=== PATIENT | female | born 1995 | race Two or more races ===

== ENCOUNTER 2017-06-16 00:28 | Emergency (ER) | payer SELFPAY ==
[~2017-06-16] VITALS: Ht 160 cm; Wt 69.5 kg
[2017-06-16 00:29] VITALS: BP 112/73
[2017-06-16] MEDS ORDERED: ALBUTEROL/IPRATROPIUM 2.5MG/0.5MG, 3 ML ONE (00:59)
[2017-06-16] MEDS ORDERED: ALBUTEROL/IPRATROPIUM 2.5MG/0.5MG, 3 ML NPPB PRN (01:00)
[2017-06-16] MEDS: ALBUTEROL/IPRATROPIUM 2.5MG/0.5MG, 3 ML NPPB SCH (01:00)
== END 2017-06-16 02:01 | disposition home or self-care (01) ==
LOC: ED 01:55
DX: J45.31 Mild persistent asthma with (acute) exacerbation (principal); R07.89 Other chest pain
CPT/HCPCS: 71046; 93005; 94640; 99284; J7512; J7620

== ENCOUNTER 2017-09-18 01:22 | Emergency (ER) | payer SELFPAY ==
[~2017-09-18] VITALS: Ht 160 cm; Wt 65.4 kg
[2017-09-18 01:29] VITALS: BP 108/73
[2017-09-18] MEDS ORDERED: ALBUTEROL/IPRATROPIUM 2.5MG/0.5MG, 3 ML ONE (01:52)
[2017-09-18] MEDS ORDERED: ALBUTEROL/IPRATROPIUM 2.5MG/0.5MG, 3 ML NEB ONE (02:00)
[2017-09-18 02:17] LABS: BASOPHILS # (AUTO) 0.02 x10^3/uL (0-0.1); BASOPHILS % (AUTO) 0 % (0-1); EOSINOPHILS # (AUTO) 0.02 x10^3/uL (0-0.4); EOSINOPHILS % (AUTO) 0 % (1-7); LYMPHOCYTES # (AUTO) 1.46 x10^3/uL (1-3.4); LYMPHOCYTES % (AUTO) 14 % (22-44); MD NO; MEAN CORPUSCULAR HEMOGLOBIN 30.6 pg (27.0-34.8); MEAN CORPUSCULAR HGB CONC 33.1 g/dL (32.4-35.8); MEAN CORPUSCULAR VOLUME 92.4 fL (80-100); MEAN PLATELET VOLUME 8.3 fL (7.4-10.4); MONOCYTES # (AUTO) 0.05 x10^3/uL (0.2-0.8); MONOCYTES % (AUTO) 0 % (2-9); NEUTROPHILS # (AUTO) 9.16 x10^3/uL (1.8-6.8); NEUTROPHILS % (AUTO) 86 % (42-75); PLATELET COUNT 369 x10^3/uL (130-400); RED BLOOD COUNT 4.93 x10^6/uL (3.82-5.3); RED CELL DISTRIBUTION WIDTH 13.1 % (9.6-15.2)
[2017-09-18 02:55] LABS: ANION GAP 8 mmol/L (5-15); CALCIUM 8.9 mg/dL (8.5-10.1); CHLORIDE 109 mmol/L (98-107); CREATININE 0.85 mg/dL (0.55-1.02)
[2017-09-18] MEDS ORDERED: POTASSIUM CHLORIDE 20 MEQ TAB.ER.PRT PO ONE (03:30)
== END 2017-09-18 03:41 | disposition home or self-care (01) ==
LOC: ED 03:35
DX: J45.31 Mild persistent asthma with (acute) exacerbation (principal)
CPT/HCPCS: 36415; 71046; 80048; 82040; 85025; 85379; 93005; 94640; 99285; J7620

== ENCOUNTER 2018-07-25 19:40 | Emergency (ER) | payer SELFPAY ==
[~2018-07-25] VITALS: Ht 162.6 cm; Wt 61.0 kg
[2018-07-25] MEDS ORDERED: ALBUTEROL SULFATE 2.5 MG/3 ML NPPB ONE (20:00)
[2018-07-25] MEDS ORDERED: ALBUTEROL/IPRATROPIUM 2.5MG/0.5MG, 3 ML NPPB ONE (20:00)
[2018-07-25] MEDS ORDERED: ALBUTEROL/IPRATROPIUM 2.5MG/0.5MG, 3 ML ONE (20:03)
--- NOTE | 2018-07-25 20:05 | NUR ---
PT PRESENTED WITH C/O DIFFICULTY BRTEATHING X 30 MINS, PT STATED " IT'S MY ALLERGIES, MY THROAT FEELS TIGHT LIKE IT'S CLOSING", SPO2- 97% ON R/A, PT HAS H/X OF ASTHMA. MONITORS APPLIED, SIDERAILS UP X2, CALL LIGHT WITHIN REACH.
--- NOTE | 2018-07-25 20:07 | NUR ---
PT MEDICATED PER MAY. RT AT BEDSIDE FOR T/X
--- NOTE | 2018-07-25 20:21 | NUR ---
PT UP TO RR WITH STEADY GAIT, NOW RESTING ON BRANT BOYER, MONITORS IN PLACE, CALL LIGHT WITHIN REACH
[2018-07-25] MEDS ORDERED: ALBU18HF INH (20:24)
[2018-07-25] MEDS ORDERED: ALBUTEROL SULFATE 2.5 MG/3 ML ONE (21:05)
[2018-07-25 21:24] VITALS: BP 115/68
== END 2018-07-25 21:39 | disposition home or self-care (01) ==
LOC: ED 21:07
DX: J45.21 Mild intermittent asthma with (acute) exacerbation (principal); R09.02 Hypoxemia
CPT/HCPCS: 71045; 94640; 99283; J7512; J7620

== ENCOUNTER 2020-04-05 21:46 | Emergency (ER) | payer SELFPAY ==
[~2020-04-05] VITALS: Ht 160 cm; Wt 54.0 kg
[~2020-04-05 21:46] MED LIST: ALBU18HF INH
--- NOTE | 2020-04-05 22:05 | NUR ---
ERP AT BEDSIDE
[2020-04-05 23:00] VITALS: BP 121/71
--- NOTE | 2020-04-05 23:01 | NUR ---
Patient given discharge instructions and they have confirmed that they understand the instructions. Patient ambulatory with steady gait.
== END 2020-04-05 23:13 | disposition home or self-care (01) ==
LOC: ED 22:30
DX: J45.21 Mild intermittent asthma with (acute) exacerbation (principal); F41.1 Generalized anxiety disorder; R06.00 Dyspnea, unspecified; R06.02 Shortness of breath
CPT/HCPCS: 93005; 99283; J7512; Q0177

== ENCOUNTER 2020-05-22 20:15 | Emergency (ER) | payer SELFPAY ==
[~2020-05-22] VITALS: Ht 160 cm; Wt 53.6 kg
[2020-05-22] MEDS ORDERED: DEXAMETHASONE 4 MG TABLET ONE (20:40)
[2020-05-22] MEDS ORDERED: DEXAMETHASONE 4 MG TABLET PO ONE (21:00)
[2020-05-22 21:14] VITALS: BP 114/62
--- NOTE | 2020-05-22 21:14 | NUR ---
Patient given discharge instructions and they have confirmed that they understand the instructions. Patient ambulatory with steady gait.
== END 2020-05-22 21:16 | disposition home or self-care (01) ==
LOC: ED 21:00
DX: J02.0 Streptococcal pharyngitis (principal); J45.909 Unspecified asthma, uncomplicated
CPT/HCPCS: 99283

== ENCOUNTER 2020-05-23 15:17 | Emergency (ER) | payer SELFPAY ==
[~2020-05-23] VITALS: Ht 160 cm; Wt 53.5 kg
[2020-05-23 15:28] VITALS: BP 115/78
--- NOTE | 2020-05-23 16:24 | NUR ---
DR. CHAUHAN AT FOR PT HISTORY AND ASSESSMENT.
--- NOTE | 2020-05-23 16:28 | NUR ---
PT AT BS WITH DR CHAUHAN TO DISCUSS ER PROCESS AND POC. PT VERBALIZES UNDERSTANDING OF TREATMENT AND DENIES ANY OTHER NEEDS AT THIS TIME. PT ATTACHED TO VS MONITORS. VSS.
[2020-05-23] MEDS ORDERED: ONDANSETRON ODT 4 MG PO ONE (16:30)
[2020-05-23] MEDS ORDERED: MAALOX/HYOSCYAMINE/LIDOCAINE 45 ML BTL PO ONE (16:30)
[2020-05-23] MEDS ORDERED: FAMOTIDINE 20 MG TABLET PO ONE (16:30)
[2020-05-23] MEDS ORDERED: ONDANSETRON ODT 4 MG ONE (16:35)
[2020-05-23] MEDS ORDERED: FAMOTIDINE 20 MG TABLET ONE (16:36)
[2020-05-23] MEDS ORDERED: MAALOX/HYOSCYAMINE/LIDOCAINE 45 ML BTL ONE (16:36)
--- NOTE | 2020-05-23 16:40 | NUR ---
PT MEDICATED PER MAR AT THIS TIME.
--- NOTE | 2020-05-23 17:39 | NUR ---
PT ASLEEP IN [facility] AT THIS TIME WITH NADN. JARRETT AND UPDATED IN EMR.
--- NOTE | 2020-05-23 17:53 | NUR ---
PT D/C WITH D/C SUMMARY AND SCRIPTS. PT EDUCATED ON D/C INSTRUCTIONS AND VERBALIZES UNDERSTANDING. PT QUESTIONS ANSWERED. PT AMBULATES TO REGISTRATION DESK WITH STEADY GAIT FOR D/C HOME WITH FRIEND AND DENIES ANY OTHER NEEDS PERTAINING TO THIS VISIT. VSS.
== END 2020-05-23 17:55 | disposition home or self-care (01) ==
LOC: ED 15:47
DX: K21.9 Gastro-esophageal reflux disease without esophagitis (principal); R19.7 Diarrhea, unspecified; R51.9 Headache, unspecified; R11.2 Nausea with vomiting, unspecified; J45.909 Unspecified asthma, uncomplicated
CPT/HCPCS: 99284; Q0162